=== PATIENT | female | born 1950 | race Caucasian/White ===

== ENCOUNTER 2018-02-16 12:34 | Outpatient (REF) | payer MEDICARE, OTHER, SELFPAY ==
[2018-02-16 22:23] LABS: Hemoglobin A1C 7.5 % (4.5-6.2)
[2018-02-20 10:02] LABS: Hepatitis C Ab w Rflx HCV PCR Negative (NEGAT)
== END 2018-02-16 12:54 ==
LOC: NCHCN 12:34
PROVIDERS: PCP Internal Medicine; Visit Provider Internal Medicine
DX: E11.9 Type 2 diabetes mellitus without complications (principal); Z11.59 Encounter for screening for other viral diseases
CPT/HCPCS: 86803; 83036

== ENCOUNTER 2018-12-12 12:20 | Outpatient (REF) | payer MEDICARE, OTHER, SELFPAY ==
[2018-12-12 21:44] LABS: Anion Gap 8.8 mmol/L (3-11); BUN 24 mg/dL (7-18); CO2 27.2 mmol/L (21.0-32.0); Calcium 9.3 mg/dL (8.5-10.1); Calculated LDL 42 mg/dL; Chloride 104 mmol/L (98-107); Cholesterol 127 mg/dL (50-200); Glucose 165 mg/dL (70-100); HDL Cholesterol 38 mg/dL (40-60); Sodium 140 mmol/L (136-145); Triglyceride 237 mg/dL (30-150)
== END 2018-12-12 12:40 ==
LOC: NCHCN 12:20
PROVIDERS: PCP Internal Medicine; Visit Provider Internal Medicine
DX: E11.9 Type 2 diabetes mellitus without complications (principal); E78.5 Hyperlipidemia, unspecified; I10 Essential (primary) hypertension
CPT/HCPCS: 80048; 80061

== ENCOUNTER 2020-01-01 19:17 | Outpatient (REF) | payer MEDICARE, OTHER, SELFPAY ==
[2020-01-01 20:46] LABS: Anion Gap 7.2 mmol/L (3-11); BUN 24 mg/dL (7-18); CO2 29.8 mmol/L (21.0-32.0); CREATININE 1.06 mg/dL (0.55-1.02); Calcium 9.1 mg/dL (8.5-10.1); Chloride 102 mmol/L (98-107); Estimated GFR 51.55 (mL/min/1.73m2); Glucose 274 mg/dL (74-106); Potassium 3.9 mmol/L (3.5-5.1); Sodium 139 mmol/L (136-145)
== END 2020-01-01 19:37 ==
LOC: NCHCN 19:17
PROVIDERS: PCP Internal Medicine; Visit Provider Internal Medicine
DX: E11.9 Type 2 diabetes mellitus without complications (principal); I10 Essential (primary) hypertension; F32.9 Major depressive disorder, single episode, unspecified; G47.00 Insomnia, unspecified
CPT/HCPCS: 80048

== ENCOUNTER 2020-02-15 09:05 | Outpatient (REF) | payer MEDICARE, OTHER, SELFPAY ==
[2020-02-15 11:55] LABS: C Diff PCR Negative (Negative)
== END 2020-02-15 09:25 ==
LOC: NCHCN 09:05
PROVIDERS: PCP Internal Medicine; Visit Provider Internal Medicine
DX: R19.7 Diarrhea, unspecified (principal)
CPT/HCPCS: 87493; 82272

== ENCOUNTER 2020-03-03 19:58 | Outpatient (REF) | payer MEDICARE, OTHER, SELFPAY ==
[2020-03-03 20:58] LABS: Abs Immature Grans 0.01 10^3/uL (0.0-0.06); Absolute Eosinophil Count 0.23 10^3/uL (0.0-0.7); Absolute Lymphocyte Count 1.38 10^3/uL (1.2-3.4); Absolute Monocyte Count 0.44 10^3/uL (0.1-0.8); Absolute Neutrophil Count 4.56 10^3/uL (1.2-6.7); Basophils % 1.5; Eosinophils % 3.4; HCT 41.2 % (36.0-46.0); HGB 14.2 g/dL (11.2-15.7); Immature Grans % 0.1; Lymphocytes % 20.5; MCH 30.4 pg (27.0-33.0); MCHC 34.5 % (32.0-36.0); MCV 88.2 fL (80-95); MPV 10.2 fL (8.0-11.0); Monocytes % 6.5; Nucleated RBC 0 %; Platelet Count 283 10^3/uL (130-400); RBC 4.67 10^6/uL (3.93-5.22); RDW-SD 41.8 fL; WBC 6.72 10^3/uL (4.4-10.8)
[2020-03-03 21:17] LABS: ALT 27 U/L (14-59); AST 18 U/L (15-37); Albumin 3.5 g/dL (3.4-5.0); Alkaline Phosphatase 76 U/L (46-116); Anion Gap 9.4 mmol/L (3-11); BUN 13 mg/dL (7-18); Bilirubin, Total 0.5 mg/dL (0.2-1.0); C-Reactive Protein 0.11 mg/dL (0.0-0.3); CO2 27.6 mmol/L (21.0-32.0); Calcium 8.7 mg/dL (8.5-10.1); Chloride 104 mmol/L (98-107); Estimated GFR 49.39 (mL/min/1.73m2); Glucose 189 mg/dL (74-106); Potassium 3.4 mmol/L (3.5-5.1); Sodium 141 mmol/L (136-145); Total Protein 6.9 g/dL (6.4-8.2)
== END 2020-03-03 20:18 ==
LOC: NCHCN 19:58
PROVIDERS: PCP Internal Medicine; Visit Provider Internal Medicine
DX: R19.7 Diarrhea, unspecified (principal); R10.9 Unspecified abdominal pain
CPT/HCPCS: 80053; 85025; 86140

== ENCOUNTER → 2020-03-14 11:00 | Outpatient (BNVA) | payer MEDICARE, OTHER, SELFPAY | PROVIDERS: PCP Internal Medicine; Referring Provider Internal Medicine; Visit Provider Surgery | DX: R19.4 Change in bowel habit (principal); R19.7 Diarrhea, unspecified; Z11.59 Encounter for screening for other viral diseases | CPT/HCPCS: 99213 ==

== ENCOUNTER 2020-03-20 15:34 | Outpatient (REF) | payer MEDICARE, OTHER, SELFPAY ==
[2020-03-20 21:26] LABS: Potassium 3.9 mmol/L (3.5-5.1)
== END 2020-03-20 15:54 ==
LOC: NCHCN 15:34
PROVIDERS: PCP Internal Medicine; Visit Provider Internal Medicine
DX: E87.6 Hypokalemia (principal)
CPT/HCPCS: 84132

== ENCOUNTER 2020-04-03 11:11 | Outpatient (CLI) | payer MEDICARE, OTHER, SELFPAY ==
[2020-04-05 15:56] LABS: COVID-19 RT-PCR UVMMC Result Negative (Negative)
== END 2020-04-03 11:31 ==
PROVIDERS: PCP Internal Medicine; Visit Provider Surgery
DX: Z11.59 Encounter for screening for other viral diseases (principal); Z01.818 Encounter for other preprocedural examination
CPT/HCPCS: U0003

== ENCOUNTER 2020-04-07 08:09 | Day surgery (SDC) | payer MEDICARE, OTHER, SELFPAY ==
--- NOTE | 2020-04-07 06:59 | COLE_ITS ---
Date of service: 04/07/20 Time of Service: : Colonoscopy Report Date of procedure: 04/07/20 Pre-op diagnosis general: screening and diarrhea Post-op diagnosis procedure note: same (and internal hemorrhoids) Procedure: Colonoscopy Surgeon: Barbara Kaur Anesthesia proc note operative: other (General/ASA 2/Jenniffer Shore CRNA and Eddy Espinoza CRNA) Estimated blood loss (mL): 0 Pathology: none sent Complications: None Disposition: same day Indications: Mrs. Oden is a pleasant 69-year-old female who started with some profuse diarrhea about 5 to 6 weeks ago. This lasted for about 3 weeks. In the last week or so her stools have started to become more formed and she is having less frequency of stool. Her cultures were all negative. I suspect that she probably had a gastroenteritis due to a virus and she has an irritated colon from that. As her symptoms are getting better I doubt that there is colon cancer or anything else to worry about. Because she has never had a colonoscopy I did recommend that we go ahead with a screening colonoscopy. We discussed the colonoscopy in detail as well as's Covid testing prior to the procedure. Risks, benefits and complications have been reviewed. Complications include but are not limited to bleeding, pain, perforation, missed small lesion/polyp, sore throat, aspiration and adverse reaction to the medications. Questions were entertained and answered to their satisfaction and they wished to proceed. No guarantees were given or implied. COVID-19 testing explained to the patient. Reason for test reviewed. Quarantine per state requirements reviewed with zoraida smiley. Patient understands and agrees to testing. Proceed with colonoscopy under sedation and Covid testing. Prep: Miralax/Dulcolax Procedure Start Time: : Procedure End Time: :35 Retraction Time: 20 minutes Findings: Grade 1 internal hemorrhoids Procedure Description: After informed consent was obtained the patient was taken to the procedure room and placed in a left decubitous position. Monitors were applied and a time out was done. The patients name, date of , procedure, allergies to medications and metal in their body was reviewed. The patient was then sedated. Once sedated and comfortable a rectal exam was done. External exam was normal. Internal exam revealed a normal sphincter tone and no palpable masses. The scope was then introduced and retro-flexed. Grade 1 internal hemorrhoids were identified. The scope was then advanced to the cecum without difficulty. The ileocecal valve and appendiceal orifice were identified. The prep was good. The scope was then slowly retracted over 20 minutes back into the rectum. There were no polyps and no diverticula. The scope was removed and the patient was woken up and taken back to Same day surgery in stable condition. The patient tolerated the procedure well and there were no immediate complications. Follow up: The patient should follow up in 10 years unless they develop changes in bowel habits or other new gastrointestinal complaints.
--- NOTE | 2020-04-07 07:00 | W.PM.DSUDISC ---
Discharge Plan Disposition Patient Disposition: HOME Condition: Good Discharge Details Reason For Visit: colonoscopy Attending Provider: Barbara Kaur Primary Care Provider: Alek Ghosh Home Meds and New Rx's Prescriptions: Continued meloxicam 7.5 mg tablet 15 mg PO DAILY RF: 0 losartan 50 MG tablet 50 mg PO DAILY RF: 0 atorvastatin [Lipitor] 40 MG tablet 40 mg PO DAILY RF: 0 metformin 1,000 MG tablet 1,000 mg PO BID RF: 0 glimepiride 4 MG tablet 4 mg PO DAILY RF: 0 hydrochlorothiazide 25 MG tablet 25 mg PO DAILY RF: 0 fluoxetine 20 MG capsule 20 mg PO DAILY RF: 0 multivitamin 1 EACH capsule 1 cap PO DAILY RF: 0 Discontinued bisacodyl [Dulcolax (bisacodyl)] 5 mg tablet,delayed release (DR/EC) 5 mg PO ONCE Qty: 4 RF: 0 polyethylene glycol 3350 17 gram powder in packet 255 g PO DAILY Qty: 15 RF: 0 Discharge Instructions Instructions: Hemorrhoids (DC) Additional Instructions: Findings: Normal colon Follow up: 10 years For the diarrhea: Try taking metamucil daily to bulk up your stools. Eliminate dairy from your diet for at least 2 weeks to see if this makes a difference. Please call if you develop: fevers >101.5 Nausea or Vomiting Abdominal pain that is not transient DAY SURGERY UNIT POST ENDOSCOPY INSTRUCTIONS 1. Because there will be medication in your system for the next 24 hours, you may feel a little sleepy. Your coordination will be affected. Therefore: a. Do not drive or operate dangerous equipment for 24 hours. b. Do not drink alcohol beverages for 24 hours (not even beer). c. Plan to go home and rest for the day. 2. Generally there are no restrictions on your activity after a day or so has gone by, but you may feel a bit fatigued for a few days. 3 After you arrive home you may have a light meal and return to a normal diet as you can tolerate it without feeling sick to your stomach. 4. After surgery, you may feel pain or discomfort. This should be only transient, but if it persists please contact your doctor. 5. If there are any questions regarding the findings of your procedure, please feel free to contact your doctor. 6. If you are unable to contact your doctor with a problem, contact the hospital at [phone]. 7. Continue all your regular medications unless directed otherwise. I understand the above instructions and have no questions. Signature of Patient or Responsible Adult Escort Date/Time Name of Responsible Adult Escort Signature of Nurse Date/Time Activity:: Activity as Tolerated Diet:: dairy free Discharge Orders Discharge Orders: Discharge Order (Routine); Ordered 04/07/20 Ordered By: Barbara Kaur
[2020-04-07 08:25] VITALS: BP 139/77; PULSE 89; RESP 17; TEMP 36.4; O2SAT 93
[2020-04-07] MEDS: Lactated Ringers 1,000 ML 80 ML IV (08:48)
[2020-04-07 10:16] VITALS: BP 116/60; PULSE 67; RESP 16; TEMP 36.7; O2SAT 95
== END 2020-04-07 10:57 | disposition home or self-care (01) ==
LOC: SUR 08:10
PROVIDERS: PCP Internal Medicine; Visit Provider Surgery
PROC: 0DJD8ZZ Inspection of Lower Intestinal Tract, Via Natural or Artificial Opening Endoscopic (ICD-10-PCS; CPT 45378; principal; 2020-04-07 09:30)
DX: Z12.11 Encounter for screening for malignant neoplasm of colon (principal); R19.7 Diarrhea, unspecified; K64.0 First degree hemorrhoids
CPT/HCPCS: G0121; J2001

== ENCOUNTER 2020-11-11 12:11 | Outpatient (REF) | payer MEDICARE, OTHER, SELFPAY ==
[2020-11-11 20:38] LABS: Abs Immature Grans 0.02 10^3/uL (0.0-0.06); Absolute Basophil Count 0.05 10^3/uL (0.0-0.2); Absolute Eosinophil Count 0.02 10^3/uL (0.0-0.7); Absolute Lymphocyte Count 0.77 10^3/uL (1.2-3.4); Absolute Monocyte Count 0.85 10^3/uL (0.1-0.8); Basophils % 0.5; Eosinophils % 0.2; HCT 41.5 % (36.0-46.0); HGB 13.7 g/dL (11.2-15.7); Immature Grans % 0.2; Lymphocytes % 7.7; MCH 30.3 pg (27.0-33.0); MCV 91.8 fL (80-95); MPV 10.3 fL (8.0-11.0); Monocytes % 8.5; Neutrophils % 82.9; Nucleated RBC 0 %; Platelet Count 242 10^3/uL (130-400); RBC 4.52 10^6/uL (3.93-5.22); RDW 12.7 % (11.7-14.6); RDW-SD 42.6 fL; WBC 10.01 10^3/uL (4.4-10.8)
[2020-11-11 20:53] LABS: ALT 15 U/L (14-59); AST 17 U/L (15-37); Albumin 3.3 g/dL (3.4-5.0); Alkaline Phosphatase 74 U/L (46-116); Anion Gap 10.3 mmol/L (3-11); BUN 20 mg/dL (7-18); CO2 28.7 mmol/L (21.0-32.0); CREATININE 1.1 mg/dL (0.55-1.02); Calcium 8.7 mg/dL (8.5-10.1); Chloride 100 mmol/L (98-107); Estimated GFR 49.25 (mL/min/1.73m2); Glucose 154 mg/dL (74-106); Potassium 3.9 mmol/L (3.5-5.1); Sodium 139 mmol/L (136-145); Total Protein 7.1 g/dL (6.4-8.2)
[2020-11-11 20:54] LABS: Bilirubin Small (Negative); Blood Small (Negative); Clarity Sl Cloudy (Clear); Glucose Negative (Negative); Ketones 40 mg/dL (Negative); Leukocyte Esterase Moderate (Negative); Nitrite Negative (Negative); Specific Gravity 1.015 (1.005-1.025); pH 6.5 (5-8)
[2020-11-11 21:08] LABS: Bacteria Many HPF (Negative); Epithelial Cells Many HPF (Negative); WBC >50 HPF (0-5)
[2020-11-11 21:09] LABS: C & S Indicated? No/Sq. Contamination; Other Cells Moderate Renal (Negative)
== END 2020-11-11 12:12 | disposition home or self-care (01) ==
LOC: NCHCN 12:11
PROVIDERS: PCP Internal Medicine; Visit Provider Family Medicine
DX: N10 Acute pyelonephritis (principal)
CPT/HCPCS: 80053; 81003; 81015; 85025

== ENCOUNTER 2021-10-20 17:20 | Outpatient (REF) | payer MEDICARE, OTHER, SELFPAY ==
[2021-10-20 15:50] LABS: Anion Gap 10.1 mmol/L (3-11); BUN 29 mg/dL (7-18); CO2 27.9 mmol/L (21.0-32.0); Calcium 8.9 mg/dL (8.5-10.1); Chloride 103 mmol/L (98-107); Estimated GFR 54.81 (mL/min/1.73m2); Glucose 135 mg/dL (74-106); Potassium 4.2 mmol/L (3.5-5.1); Sodium 141 mmol/L (136-145)
== END 2021-10-20 17:21 | disposition home or self-care (01) ==
LOC: NCHCN 17:20
PROVIDERS: PCP Internal Medicine; Visit Provider Internal Medicine
DX: E11.9 Type 2 diabetes mellitus without complications (principal); I10 Essential (primary) hypertension; F32.9 Major depressive disorder, single episode, unspecified; R35.0 Frequency of micturition
CPT/HCPCS: 80048

== ENCOUNTER → 2022-02-23 02:03 | Outpatient (CLI) | payer MEDICARE, OTHER, SELFPAY ==
--- NOTE | 2022-02-23 14:00 | DI.RAD_ITS ---
Exam(s) XR HIP RT COMPLETE AP PELVIS EXAM: XR HIP RT COMPLETE AP PELVIS CLINICAL HISTORY: RT HIP OSTEOARTHRITIS, M16.11. TECHNIQUE: 2D digital imaging was performed of the right hip. Three images were obtained. AP pelvis and lateral right hip views were obtained. COMPARISON: No exams were available for comparison FINDINGS: BONES: No acute fracture is present. No bony destructive lesion is seen. There are mild hypertrophic changes seen at the greater trochanter. JOINTS: No dislocation present. Moderate degenerative changes in the lumbar spine. SOFT TISSUE: Normal. IMPRESSION: 1. Mild hypertrophic/degenerative changes seen at the greater trochanter. 2. Degenerative changes in the lower lumbar spine. DATA REPOSITORY: RADIATION DOSE DELIVERED:
== END ==
PROVIDERS: PCP Internal Medicine; Visit Provider Internal Medicine
DX: M47.816 Spondylosis without myelopathy or radiculopathy, lumbar region (principal); M16.11 Unilateral primary osteoarthritis, right hip
CPT/HCPCS: 73502

== ENCOUNTER → 2022-05-06 09:40 | Outpatient (BNVA) | payer MEDICARE, OTHER, SELFPAY | PROVIDERS: PCP Internal Medicine; Referring Provider Internal Medicine; Visit Provider Student in an Organized Health Care Education/Training Program | DX: M70.61 Trochanteric bursitis, right hip (principal); M76.891 Other specified enthesopathies of right lower limb, excluding foot | CPT/HCPCS: 20610; 99213; J1040 ==

== ENCOUNTER 2022-06-14 01:25 | Outpatient (CLI) | payer MEDICARE, OTHER, SELFPAY ==
--- NOTE | 2022-06-14 07:00 | DI.MRI_ITS ---
Exam(s) MR LOWER JOINT RT WO EXAM: MR LOWER JOINT RT WO CLINICAL HISTORY: PAIN,trochanteric bursitis rt hip, tendinitis rt hip abductor,m76.891, TECHNIQUE: Multiplanar multisequence MRI of right hip was performed COMPARISON: CR XR HIP RT COMPLETE AP PELVIS from 02/23/2022 FINDINGS: Bones: There is no evidence of a fracture or avascular necrosis. No significant joint effusion or l abral injury is present. There is narrowing of the hip joint space. There is hyperintense signal se en in the right femoral head, neck and to a lesser degree proximal metaphysis. There does appear to be linear hypointense signal paralleling the superior articular surface of the femoral head. There i s also mild marrow edema seen in the adjacent superior medial right acetabulum. There is otherwise n ormal marrow signal. The SI joints and symphysis pubis are well maintained. Musculotendinous structures: Musculotendinous structures demonstrate no abnormality. Note is made of diverticular disease in the sigmoid colon. Soft tissues: There is mild edema seen in the soft tissues inferior to the femoral head. No focal fl uid collection is seen. IMPRESSION: 1. Marrow edema seen in the proximal right femur as described above. Diagnostic considerations inclu de transient osteoporosis of the hip or AVN. Stress fracture, infection or inflammatory osteoarthrit is considered less likely. 2. No evidence of a tendon tear. DATA REPOSITORY:
== END 2022-06-14 01:45 ==
LOC: DI 01:30
PROVIDERS: PCP Internal Medicine; Visit Provider Student in an Organized Health Care Education/Training Program
DX: M25.551 Pain in right hip (principal); M70.61 Trochanteric bursitis, right hip; M76.891 Other specified enthesopathies of right lower limb, excluding foot; M25.851 Other specified joint disorders, right hip
CPT/HCPCS: 73721

== ENCOUNTER 2022-06-17 11:16 | Outpatient (CLI) | payer MEDICARE, OTHER, SELFPAY ==
--- NOTE | 2022-06-17 10:45 | DI.RAD_ITS ---
Exam(s) XR PELVIS AP EXAM: XR PELVIS AP CLINICAL HISTORY: right hip pain. TECHNIQUE: 2D digital imaging was performed. One view AP COMPARISON: CR XR HIP RT COMPLETE AP PELVIS from 02/23/2022 FINDINGS: BONES: No acute fracture is present. No bony destructive lesion is seen. JOINTS: No dislocation present. Moderate narrowing right hip joint space. Mild periarticular spurrin g. Mild spurring at the greater trochanters, right greater the left. Left hip joint space is mainta ined. SOFT TISSUE: Normal. IMPRESSION: Moderate degenerative changes of the right hip. DATA REPOSITORY: RADIATION DOSE DELIVERED:
== END 2022-06-17 11:17 | disposition home or self-care (01) ==
LOC: DIORS 11:17
PROVIDERS: PCP Internal Medicine; Referring Provider Internal Medicine; Visit Provider Student in an Organized Health Care Education/Training Program
DX: M16.11 Unilateral primary osteoarthritis, right hip; M70.61 Trochanteric bursitis, right hip; M76.891 Other specified enthesopathies of right lower limb, excluding foot
CPT/HCPCS: 99213; 72170

== ENCOUNTER 2022-07-08 03:12 | Outpatient (CLI) | payer MEDICARE, OTHER, SELFPAY ==
[2022-07-08 12:09] LABS: HCT 40.6 % (36.0-46.0); HGB 13.9 g/dL (11.2-15.7); MCH 31.5 pg (27.0-33.0); MCHC 34.2 % (32.0-36.0); MCV 92 fL (80-95); MPV 8.7 fL (8.0-11.0); Platelet Count 279 10^3/uL (130-400); RBC 4.41 10^6/uL (3.93-5.22); RDW-SD 41.1 fL; WBC 7.69 10^3/uL (4.4-10.8)
[2022-07-08 13:02] LABS: Anion Gap 5.5 mmol/L (3-11); BUN 25 mg/dL (7-18); CO2 33.5 mmol/L (21.0-32.0); CREATININE 1.1 mg/dL (0.55-1.02); Calcium 9.4 mg/dL (8.5-10.1); Chloride 104 mmol/L (98-107); Estimated GFR 53.72 (mL/min/1.73m2); Glucose 130 mg/dL (74-106); Potassium 4.2 mmol/L (3.5-5.1); Sodium 143 mmol/L (136-145)
== END 2022-07-08 03:13 | disposition home or self-care (01) ==
LOC: LBO 03:16
PROVIDERS: PCP Internal Medicine; Visit Provider Student in an Organized Health Care Education/Training Program
DX: M16.11 Unilateral primary osteoarthritis, right hip; Z01.818 Encounter for other preprocedural examination; Z01.812 Encounter for preprocedural laboratory examination
CPT/HCPCS: 36415; 80048; 85027

== ENCOUNTER 2022-07-14 06:00 | Day surgery (SDC) | payer MEDICARE, OTHER, SELFPAY ==
[2022-07-14] VITALS (12 sets, daily range): BP systolic 118–143; BP diastolic 55–88; PULSE 60–88; RESP 12–18; TEMP 36.2–36.6; O2SAT 94–97; BMI 38.4
[2022-07-14] MEDS: Acetaminophen 500 MG TAB 1000 MG PO (06:36)
[2022-07-14] MEDS: Celecoxib 200 MG CAP 400 MG PO (06:37)
--- NOTE | 2022-07-14 06:52 | W.ANESPRE ---
General Info Date of Service Date Performed: 07/14/22 Height: 5 ft 6 in Weight: 107.9 kg Body Mass Index (BMI): 38.4 Surgical Procedure: Operation Date: 07/14/22 07:50 Proposed Procedure Side Surgeon p Hip Total Hip Anterior, ACTIS (CR 125 deg. [place]) Right Bryant Goldberg MD Meds Allergies and Home Medications Allergies Allergy/AdvReac Type Severity Reaction Status Date / Time adhesive tape AdvReac Intermediate Verified 07/14/22 06:25 lisinopril AdvReac Intermediate cough Verified 07/14/22 06:23 Home Medication Medication Instructions Recorded atorvastatin 40 mg tablet (Lipitor) 40 mg PO DAILY 07/27/13 fluoxetine 20 mg capsule 20 mg PO DAILY 07/27/13 hydrochlorothiazide 25 mg tablet 25 mg PO DAILY 07/27/13 metformin 1,000 mg tablet 1,000 mg PO BID 07/27/13 multivitamin 1 cap PO DAILY 07/30/13 losartan 50 mg tablet 100 mg PO DAILY 02/23/22 acetaminophen 500 mg capsule 1,000 mg PO BID PRN 05/06/22 Current Visit Medications: Current Medications Generic Name Dose Route Start Last Admin Trade Name Freq PRN Reason Stop Dose Admin Acetaminophen 1,000 mg 07/14/22 06:00 07/14/22 06:36 Acetaminophen 500 Mg Tab PO 07/14/22 18:00 1,000 mg PREOP JOCELYNN Administration Celecoxib 400 mg 07/14/22 06:00 07/14/22 06:37 Celecoxib 200 Mg Cap PO 07/14/22 18:00 400 mg PREOP JOCELYNN Administration Tranexamic Acid 1,000 mg/ 60 mls @ 360 mls/hr 07/14/22 06:00 Sodium Chloride IV 07/14/22 18:00 PREOP JOCELYNN Ringer's Solution 1,000 mls @ 80 mls/hr 07/14/22 06:00 IV 08/12/22 23:59 INFUSION JOCELYNN Cefazolin Sodium/Dextrose 2 gm in 50 mls @ 100 mls/hr 07/14/22 06:00 Ancef Duplex IVPB 07/14/22 16:00 PREOP JOCELYNN IV Miscellaneous Supplies 1 each 07/14/22 06:00 Iv Access IV 08/12/22 23:59 DIRECTED JOCELYNN Sodium Chloride 0 ml 07/14/22 06:00 Normal Saline Flush 10 Ml Syr IV 08/12/22 23:59 PRN PRN Sodium Chloride 0 ml 07/14/22 06:00 Normal Saline 10 Ml Vial IJ 08/12/22 23:59 DIRECTED PRN Sterile Water 0 ml 07/14/22 06:00 Water,Injection,Sterile 10 Ml Vial IJ 08/12/22 23:59 DIRECTED PRN PFSH Active Problems Active Problems: Problem Status Onset Code Diarrhea R19.7 Abdominal pain R10.9 Trochanteric bursitis, right hip M70.61 Tendinitis involving right hip abductors M76.891 Degenerative joint disease of right hip M16.11 Medical History Medical History (Updated 07/14/22 @ 06:30 by Ivy Diego) Depression Diabetes DJD (degenerative joint disease) a. Uses Tylenol 500 mg t.i.d. Dyslipidemia Hx of diabetes mellitus Hx of diarrhea Hypertension A. Well controlled with a combination of Hydrochlorothiazide 25 mg once daily and Losartan 50 mg once daily. Insomnia Morbid obesity with BMI of 40.0-44.9, adult PCOS (polycystic ovarian syndrome) Surgical History Surgical History (Updated 07/14/22 @ 06:28 by Ivy Diego) History of x2 Hx of colonoscopy Hx of tonsillectomy Normal colonoscopy (~04/2020) S/P cholecystectomy Status post total knee replacement, left Left TKA Left TKA revision Status post total knee replacement, right Tobacco Smoking/Tobacco Use Status: Former Tobacco Use Alcohol Alcohol Intake: never Substance Use Substance use: Never Substance use type: does not use Vital Signs and Lab Results Vital Signs Most Recent Vital Signs in EMR: Most Recent Vital Signs Temp Pulse Resp BP Pulse Ox 36.6 C 87 18 118/88 94 07/14/22 06:30 07/14/22 06:30 07/14/22 06:30 07/14/22 06:30 07/14/22 06:30 Point of Care Results Point of Care Results: Finger Stick Blood Glucose 148 07/14/22 06:40 Lab Results Blood Type / Crossmatch: No Data to Display Complete Blood Count: White Blood Count 7.69 10^3/uL (4.4-10.8) 07/08/22 12:00 Red Blood Count 4.41 10^6/uL (3.93-5.22) 07/08/22 12:00 Hemoglobin 13.9 g/dL (11.2-15.7) 07/08/22 12:00 Hematocrit 40.6 % (36.0-46.0) 07/08/22 12:00 Platelet Count 279 10^3/uL (130-400) 07/08/22 12:00 Complete Metabolic Panel: Sodium 143 mmol/L (136-145) 07/08/22 12:00 Potassium 4.2 mmol/L (3.5-5.1) 07/08/22 12:00 Chloride 104 mmol/L (98-107) 07/08/22 12:00 Carbon Dioxide 33.5 mmol/L (21.0-32.0) H 07/08/22 12:00 BUN 25 mg/dL (7-18) H 07/08/22 12:00 Creatinine 1.1 mg/dL (0.55-1.02) H 07/08/22 12:00 Est GFR (CKD-EPI 2020) 53.72 (mL/min/1.73m2) 07/08/22 12:00 Calcium 9.4 mg/dL (8.5-10.1) 07/08/22 12:00 Glucose 130 mg/dL (74-106) H 07/08/22 12:00 Liver Function Panel: No Data to Display Coagulation Panel: No Data to Display Cardiac Panel: No Data to Display Arterial Blood Gas: No Data to Display Venous Blood Gas: No Data to Display Pancreas Panel: No Data to Display Thyroid Panel: No Data to Display Infectious Disease: No Data to Display Blood Cultures: No Data to Display Toxicology Panel: No Data to Display Anesthesia Assessment and Plan Anesthesia History Personal History: No History of Anesthesia Complications Family History: No Family History of Anesthesia Complications Exercise Tolerance Exercise Tolerance: Metabolic Equivalents>4 Pertinent Negatives Pertinent Negatives: No Symptoms of GERD, No Major Cardiovascular Symptoms or Complaints and No Major Pulmonary Symptoms or Complaints Cardiac & Pulmonary Exam Cardiac Exam: Normal S1/S2 Heart Sounds Pulmonary Exam: Clear Bilateral Breath Sounds Implantable Cardiac Device Does patient have a Pacemaker or an ICD?: No Airway Exam Known Difficult Airway: No Mallampati Class: 1 Mouth Opening: Normal (> 3cm) Thyromental Distance: Greater than 3 cm Neck Range of Motion: Full ROM Neck Circumference: Normal Teeth Condition: Normal Dentition ASA Classification ASA Score: ASA 2 Emergency Case?: No NPO Status NPO Status: NPO Clears >2 hours, Solids >8 hours Anesthesia Plan Resuscitation Status: Full Code Anesthesia Technique: Spinal Anesthesia Airway Planned: Natural Airway Monitors Used: Standard Monitors
[2022-07-14] MEDS: Lactated Ringers 1,000 ML 80 ML IV (07:02)
--- NOTE | 2022-07-14 07:18 | PDOC.DSDIS_ITS ---
Date of service: 07/14/22 Time of Service: 07:18 Discharge Plan Disposition Patient Disposition: Home Condition: Good Discharge Details Reason For Visit: R THR Attending Provider: Bryant Goldberg Primary Care Provider: Alek Ghosh Home Meds and New Rx's Prescriptions: New celecoxib 200 mg capsule 200 mg PO BID Qty: 60 0RF aspirin 81 mg tablet,delayed release (DR/EC) 81 mg PO BID Qty: 60 0RF acetaminophen 500 mg tablet 1,000 mg PO TID Qty: 90 3RF pantoprazole 40 mg tablet,delayed release (DR/EC) 40 mg PO DAILY Qty: 30 0RF dexamethasone 4 mg tablet 4 mg PO DAILY Qty: 2 0RF oxycodone 5 mg tablet 5 mg PO Q4H MDD 6 tabs PRN (Reason: pain) Qty: 20 0RF Continued losartan 50 mg tablet 100 mg PO DAILY atorvastatin [Lipitor] 40 MG tablet 40 mg PO DAILY metformin 1,000 MG tablet 1,000 mg PO BID hydrochlorothiazide 25 MG tablet 25 mg PO DAILY fluoxetine 20 MG capsule 20 mg PO DAILY multivitamin 1 EACH capsule 1 cap PO DAILY Discontinued acetaminophen 500 mg capsule 1,000 mg PO BID PRN Discharge Instructions Additional Instructions: Total Hip Discharge Instructions Activity: The most important activity is to walk. You should try to take short walks a few times a day. You have no restrictions on movement or positioning, but do not try to force what you do. You will find some stiffness and weakness with hip flexion (lifting your knee). Do not try to strengthen this too early, continue to practice walking and stairs and this will come. - Outpatient physical therapy can be helpful to help return you to a normal gait and improve your flexibility and strength. This can start around 2 weeks. For some patients, it?s not necessary. Usually this is determined at the time of discharge or at the first post-operative visit. - You should wear the ROSEMARIE hose on both legs for 2 weeks. Dressing: Keep the surgical dressing in place for at least one week. After the first week it may be removed and replace with light gauze and tape or nothing. It may get wet after 3 days but avoid soaking the dressing. If it gets wet, just lightly pat dry. It is important to always keep some gauze between skin folds, especially when you are sitting. Spend some time with the wound exposed when you are lying flat as the incision does wrinkle onto itself. Medications: - You should take Tylenol and an anti-inflammatory Celebrex as your primary pain control medications. If the Celebrex is too expensive or not covered, please call the office for another alternative (Advil/Ibuprofen or Naproxen/Aleve). - You have been prescribed a stronger pain medication Oxycodone for breakthrough pain, take as needed as prescribed. - You have also been prescribed a stomach acid reduction agent Pantoprozole to help reduce stomach acid and reflux. - You have also been prescribed Decadron to help with post-operative nausea and pain. You will take this for two days starting tomorrow. - You will be taking Aspirin 81mg twice a day for DVT prevention unless instructed otherwise. - If you have constipation you should take Colace or Miralax (both [id number]). It takes most people 3-4 days to have a bowel movement. Follow-up: 2 weeks If you have any acute concerns or questions, please do not hesitate to contact the office at [phone]. You may contact Dr. Goldberg with any questions after hours through the hospital at [phone] or on his cell phone at [phone]. Stand Alone Forms: Anesthesia Discharge Inst., [facility] ([facility]) Referrals: Bryant Goldberg MD [ [facility] STAFF PHYSICIAN] - Equipment/Supplies: Walker Activity:: Activity as Tolerated Shower/Bathe:: 72 hours Diet:: As Tolerated Discharge Orders Discharge Orders: Discharge Order (Routine); Ordered 07/14/22 Ordered By: Zak Schaefer DS: Diagnosis Discharge Diagnosis (1) Degenerative joint disease of right hip: Status: Chronic
[2022-07-14] MEDS: ceFAZolin 2 GM/50 ML BAG IVPB (07:29)
--- NOTE | 2022-07-14 08:45 | DI.RAD_ITS ---
Exam(s) XR HIP RT IN OR EXAM: XR HIP RT IN OR CLINICAL HISTORY: DJD RIGHT HIP. TECHNIQUE: 2D digital imaging was performed. COMPARISON: No exams were available for comparison FINDINGS: Fluoroscopy provided for right hip arthroplasty. See procedure report for details. Radiation exposure index/cumulative dose:Eddar=5.6959 mGy IMPRESSION: DATA REPOSITORY: RADIATION DOSE DELIVERED:
--- NOTE | 2022-07-14 09:08 | W.PM.OP ---
Date of service: 07/14/22 Time of Service: 09:08 Operative Note Operative Note DATE OF PROCEDURE: 07/14/22 PRE-OP DIAGNOSIS: Right Hip Osteoarthritis POST-OP DIAGNOSIS: same PROCEDURE: Right Anterior Total Hip Arthroplasty with Intraoperative Navigation SURGEON: Bryant Goldberg FISH CUTTING MACHINE OPERATOR: Zak Schaefer ANESTHESIA TYPE: Spinal Refer to Anesthesia Record ESTIMATED BLOOD LOSS: 200 PATHOLOGY: none sent TOURNIQUET TIME: 0 COMPLICATIONS: None Patient was transported to: PACU Patient's condition: stable Implants: 1. Depuy Paisley Acetabular Component, 50mm 2. Depuy Acetabular Liner, [id number] 3. Depuy Actis Standard Collared Femoral Stem, Size 4 4. Depuy Altrx Ceramic Femoral Head, Size 32+5mm Indications: I have seen Norma in clinic for symptoms of hip arthritis, confirmed with radiographic findings, which was quite progressive and debilitating. Norma has exhausted nonoperative methods and was having significant limitations in daily function and desired better function and less pain. I discussed the technical details of a hip replacement. I explained the risks of the procedure to include, but not limited to, bleeding, infection, pain, stiffness, fracture, damage to nerves and vessels, damage to muscles and tendons, loosening, instability, leg length inequality, need for repeat procedure, blood clot and cardiopulmonary demise. Despite these risks, she elected to proceed. Findings: There was significant signs of arthritis throughout the hip, most notably of the femoral head. Procedure Description: Norma was greeted in the preoperative holding area where the correct side was identified and marked. The consent was reviewed with the patient and signed. The history and physical was updated. All questions were answered. She was taken back to the operating room. A spinal anesthestic was then administered. The feet were wrapped with cast padding and Coban and then placed into the boot liners and then into the boots. Care was taken to protect the skin and make sure the heels were fully down and the boots were stable. The patient was then positioned onto the HANA table. Both legs were held in a neutral position. SCDs were applied. The patient was then slid down onto a peroneal post. Prophylactic antibiotics in the form of Cefazolin were administered. 1g of Tranxemic Acid was given intravenously within 30 minutes of incision. The right leg was then prepped with Chloraprep and draped in a standard fashion. A second prep with Chloraprep was performed prior to placement of a shower-curtain type drape with Iodine impregnated skin protection. A timeout to confirm correct identity, side and site, procedure, allergies, anesthesia, and medical concerns was performed. An obliquely oriented incision was made starting lateral to the ASIS and running distal over the Tensor Fascia [place] (TFL) muscle belly toward the fibular head, approximately 10cm. The skin and soft tissue was dissected sharply, through Juan?s fascia, and to the fascia of the TFL. With the fascia and superior border of the IT band identified, the fascia was incised with a new knife just above any perforators from the IT band. The TFL muscle belly was bluntly dissected away from the fascia and moved laterally. The fat between TFL and rectus was identified to ensure the dissection was not within the TFL. Blunt dissection created space between abductors and the capsule and retractor was placed over the lateral femoral neck. The fibers of the rectus femoris tendon were identified and these were freed from the anterior capsule. A second cobra retractor was placed around the medial femoral neck. The TFL was further retracted laterally to show the deep fascia. Careful dissection through this layer identified three main crossing vessels of the lateral femoral circumflex. These were cauterized in multiple locations and then cut without any noticeable bleeding. The TFL was further released bluntly from the deep fascia to expose anterior hip capsule and fat The Rell orthopaedic retractor was then placed beneath the TFL and against sartorius and medial soft tissues to protect and retract the soft tissues. A T-capsulotomy was then performed starting at the superior lateral acetabulum and moving distally to the intertrochanteric ridge. These capsular flaps were tagged with a No. 1 Ethibond and elevated from within. The capsular flaps were released to the shoulder of the lateral neck and to the lesser trochanter to give excellent visualization of the proximal femur. A neck osteotomy was performed using an oscillating saw based on preoperative templates. This cut started in the shoulder and of the lateral neck and exited medially. The saw was at all times directed medially to avoid injury to the greater trochanter. Gross traction was applied to the leg and the osteotomy opened. The femoral head was removed with a corkscrew, making sure to protect the TFL on its exit. Traction was released after head removal. This was measured on the back table to determine the starting reamer size. Portions of the rectus obscuring visualization were minimally elevated off the superior acetabulum. An anterior retractor was placed over the anterior wall between capsule and labrum and attached to the Gripper retraction system. The femur was rotated to 90 degrees and medial capsule was fully released until the lesser trochanter was palpable and visible; the femur was returned to 30 degrees. A posterior retractor was placed similarly between capsule and labrum. This provided excellent visualization. The contents of the cotyloid fossa were removed with electrocautery and the labrum was removed with a knife. Acetabular reaming began with a 46mm reamer. This first reaming was directed anterior to posterior and medial to get down to the true floor. This was inspected and reamed until the true floor was reached. The anterior retractor was then released and entry and exit was provided by traction on the capsular flaps. I then reamed sequentially up to a 50mm reamer where good fit was obtained. The larger reamers were oriented based on anatomical reference of the anterior and lateral nazario to ensure proper abduction and anteversion. Positioning and size was confirmed with the fluoroscopy. A 50mm Depuy Paisley acetabular component was selected. The acetabulum was reamed around the periphery with the selected acetabular size to prevent a rim fit. The deep tissues were irrigated. The acetabular component was then impacted in a position of about 40-45 degrees of abduction and 15-20 degrees of anteversion, using the patient?s anatomy as the ultimate landmark. Fluoroscopy was used to confirm this. There was excellent vanstone machine operator of the acetabular component and the inserting handle was removed. The acetabular liner, Depuy [id number] polyethylene liner, was inserted and lined up with the tines of the acetabular component. There was no soft tissue interposition. The liner was then impacted into position and confirmed to be well-seated. A portion of the sarah-articular cocktail was then injected around the acetabulum into the capsule and periosteum. This cocktail consisted of 123mg of Ropivacaine, 0.25mg of Epinephrine, 0.04mg of Clonidine, and 15mg of Ketorolac, diluted to 50cc. The leg was rotated to 120 degrees. Any remaining medial capsule was released until the lesser trochanter was easily palpable. A retractor was placed medially. The lateral capsule was further released into the shoulder to allow access to the greater trochanter. A Fields retractor was placed over the greater trochanter which allowed the trochanter to flip in front of the capsule for excellent exposure. The leg was brought down into maximal extension and 20 degrees of adduction while ensuring there was no impingement on the acetabulum. Any remnant capsule within the trochanter was released. Piriformis and obturator externis were identified and protected. There was excellent access to the proximal femur. The lateral neck remnant was removed with a rongeur. A blunt canal probe was used to identify the canal and trajectory for later broaching. A box osteotome initiated the broach course. A small curved rasp and a curved curette were used to work laterally. Broaching then began with a starter Actis broach. This was inserted manually around the trochanter and into the canal before mallet blows. The broach was seated to the neck cut level based on the neck cut and the preoperative template. Sequential broaching was continued with the WelVUse pneumatic broaching device until a tight fit was obtained with good rotational control of the femur. A trial standard neck was inserted along with a +5 trial head. The leg was brought out of extension and adduction and then reduced with traction and internal rotation. The leg was stable anteriorly in a position of 30 degrees of extension and 90 degrees of external rotation. Fluoroscopy was used to ensure there was no fracture and the stem was seated well. Leg lengths were checked with an AP pelvis and pelvic reference points. SpeechTrans navigation system was used to confirm appropriate positioning and leg length and offset. This showed appropriate offset but too much leg length, thus advancing the stem 5mm. Once content with the desired offset and leg lengths, the leg was brought back into extension, external rotation and adduction. The periosteum and surrounding tissue was injected with remaining portion of the sarah-articular cocktail. The proximal femur was irrigated as well as the deep tissues. The [employer]ric[employer] standard collared stem, size 4, was then manually inserted into the proximal femur making sure to control rotation. It was then malleted into position with light blows, giving breaks to allow bone expansion and decrease risk of fracture. The selected Depuy Altrx Ceramic Head, size 32+5mm, was then placed onto the clean and dry trunnion and secured with impaction onto the tapered fit. The leg was brought back out of extension and adduction and reduced with traction and internal rotation. Stability was confirmed with no shuck at 90 degrees of external rotation and 30 degrees of extension. No impingement through range of motion arc. Final x-ray images were obtained with fluoroscopy to confirm adequate positioning and no intraoperative fracture. The deep tissues were thoroughly irrigated with Surgiphor, betadine solution. This was allowed to sit in the wound for 3 minutes before being thoroughly irrigated out with normal saline. The capsule was then reapproximated with the previously placed Ethibond sutures. The TFL fascia was finally closed with a No. 2 Stratafix, barbed suture. Deep tissues were then reapproximated with 0 Vicryl and a running 2-0 Vicryl. The skin was closed with a running 4-0 Monocryl in a subcuticular fashion. This was reinforced with skin glue. A Mepilex silver dressing was applied. At the end of the case, all counts were correct. Norma was transferred to the hospital bed without difficulty and suffering no apparent complication. Norma has a good prognosis. Physical therapy will start today and without restrictions, weight-bearing as tolerated. Aspirin 81mg BID will be used for DVT prophylaxis.
[2022-07-14] MEDS: Normal Saline 10 ML VIAL IJ (09:28)
[2022-07-14] MEDS: HYDROmorphone 2 MG/ML SYR IVP ×2 (09:28→09:45)
[2022-07-14] MEDS: oxyCODONE 5 MG TAB PO (11:56)
--- NOTE | 2022-07-14 12:20 | W.ANESPOSTOP ---
Postoperative Evaluation Date, Time and Location Date Performed: 07/14/22 Time Performed: 12:20 Patient Location: Day Surgery Unit Vital Signs Most Recent Imported Vital Signs: Most Recent Vital Signs Temp Pulse Resp BP Pulse Ox 36.5 C 88 16 119/63 94 07/14/22 11:56 07/14/22 11:56 07/14/22 11:56 07/14/22 11:56 07/14/22 11:56 Pain Score Most Recent Pain Score: Most Recent Pain Score Pain Level 5 07/14/22 11:56 Assessment Mental Status: Awake (Alert & Oriented to Patient Baseline) Airway and Respiratory Function: Patent airway with normal (patient baseline) respiratory exam Cardiovascular Function: Hemodynamically Stable Hydration Status: Adequately Hydrated Nausea & Vomiting: No Nausea or Vomiting Pain: Pain is Moderate or Severe Postoperative Pain Management: Pain being addressed with medication Peripheral Nerve Block: Patient did not receive a nerve block Postoperative Comments:: Pt. jus received PO analgesia medication. She was a 4/10 which was tolerable and is now 5/10. PT is scheduled for 1230. She is breathing and oxygenating well when I saw her. RN will notify if any additional concerns.
--- NOTE | 2022-07-14 14:11 | PT.INIE ---
Date of service: 07/14/22 Time of Service: 12:36 PT Notes Visit Reasons: R THR Physical Therapy Day Surgery Initial Evaluation Date: 07/14/2022 Referring Doctor: SOLITARIO Delarosa PT Orders: PT CONSULT: S/P Ortho surgery Precautions: WBAT on right LE with AD. Patient Profile/Admitting Diagnosis: Norma is a 72-year-old female with degenerative joint disease of the right hip and is status post right anterior total hip arthroplasty on postoperative day 0. PMHX: Medical History?(Updated 07/08/22 @ 11:14 by Blossom Boone) Depression Diabetes DJD (degenerative joint disease) a. Uses Tylenol 500 mg t.i.d.Dyslipidemia Hypertension A. Well controlled with a combination of Hydrochlorothiazide 25 mg once daily and Losartan 50 mg once daily. Insomnia Morbid obesity with BMI of 40.0-44.9, adult PCOS (polycystic ovarian syndrome) Surgical History?(Updated 07/08/22 @ 11:14 by Blossom Boone) History of x2 Hx of tonsillectomy Normal colonoscopy (~04/2020) S/P cholecystectomy Status post total knee replacement, left Left TKA Left TKA revision Status post total knee replacement, right Social History/Home Situation: Lives with friend in a private home with sick steps to enter and a rail on one side. Independent with all aspects of ADLs using SPC prior to surgery without an assistive device although has had increasing difficulty due to worsening pain in the right hip. Equipment Owned/DME: SPC Subjective: Reports of burning pain on the outer side of her right hip down the middle of her thigh, 5-6/10 at rest and with movement. Somewhat subsided to 4-5/10 after PT session. Objective: General Observation: Supine in bed. Mepilex Ag over surgical incision. TEDs to B legs. Nurse Steward assisting with ambulation with a wheelchair follow for safety. Mental Status: Alert and oriented x4 Pain: 6/10 pain on the right lateral hip and thigh at rest and movement ROM: Right Lower Extremity: Hip flexion lacks 50% of available range due to discomfort. Hip abduction lacks 50% of available range due to discomfort. Knee flexion WFL 45 degrees to 90 degrees. Knee extension -45 degrees. Ankle dorsiflexion WFL. Ankle plantarflexion WFL. Left Lower Extremity: Hip flexion WFL. Hip abduction WFL. Knee flexion WFL. Ankle dorsiflexion WFL. Ankle plantarflexion WFL. Strength: Right Lower Extremity: Hip flexors 3-/5. Hip abductors 3-/5. Knee flexors 4/5. Knee extensors 3-/5. Ankle dorsiflexors 4-/5. Ankle plantarflexors 4-/5. Left Lower Extremity:Hip flexors 5/5. Hip abductors 5/5. Knee flexors 5/5. Knee extensors 5/5. Ankle dorsiflexors 5/5. Ankle plantarflexors 5/5. Sensation: Intact as to pain and light touch in bilateral lower extremities Bed Mobility/Transfers: Supine to sit minimal assist Sit to stand contact-guard assist Stand to sit standby assist Bed to chair contact-guard assist Gait: Tolerated level surface ambulation of 100 feet using front wheeled walker with step to gait pattern and contact-guard assist requiring minimal verbal cueing for safe and correct gait pattern to minimize pain. Reported burning pain at 6/10 pain on the lateral hip and mid thigh area that somewhat subsided later in the walk. No shortness of breath. No loss of balance. Stairs. Negotiated up and down 12 x 6 inch steps while holding onto 1 rail with 1 hand and with SPC on the other hand requiring contact-guard assist and moderate verbal cueing for safe gait pattern. Balance: Static Sitting: Normal Dynamic Sitting: Normal Static Standing: Fair Dynamic Standing: Fair Special Tests: Mobility Limitations Standardized Measure [facility] AM-PAC 6 clicks Basic Mobility Inpatient Short Form: Raw Score: 18 CMS Score: 47 deficit Informed Consent/Education: Patient instructed in purpose of PT consult. Packet containing YA exercise protocol has been given to patient. Education and training on initial set of exercises that can be done at home have been completed with patient. NEURO RE-ED: Trained patient with correct and safe performance of exercises listed below to maximize motor control, joint flexibility, soft tissue extensibility of the R hip musculature to facilitate return to independent functional mobility performance. Supine gluteal sets x 5 with 5 sh Supine heels slides x 5 Supine ankle DF/PF x 10 Seated B LAQs x 5 Seated marches x 5 Assessment: Was initially anxious and anticipatory of pain at start of session but regain confidence with mobility performance at end of session. Will have support of family members as she recovers at home. Patient requires the use of a front wheeled walker to maximize independence and reduce fall risk. Patient presents with clinical signs and symptoms consistent with current/admitting diagnoses that have resulted to mobility limitations, gait instability, generalized weakness, and impairment of motor control as demonstrated by the following impairment level findings: 1. Decreased strength to right hip major muscle groups 2. Impaired standing balance 3. Limitation of joint range of motion in right hip Impairments are contributing to the following functional limitations: 1. Inability to safely ambulate without assistive device 2. Increase completion time for mobility ADL performance 3. Increased fall risk Patient is assessed as a 57284 moderate complexity based on the following: History: 72-year-old female with impairment level findings, functional limitations, and past medical history as indicated above Examination: Demonstrable impairment in strength, balance, and mobility level with underlying impairments and functional limitations as documented above Presentation: Evolving Decision Makin moderate complexity Goals: N/A. PT evaluation and 1-2 treatment sessions only for functional mobility training using recommended AD and for HEP instruction. Plan of Care/Treatment Plan: N/A. PT evaluation and 1-2 treatment session only for functional mobility training using recommended AD and for HEP instruction. DISCHARGE RECOMMENDATIONS: Home when medically cleared by orthopedic surgeon. Recommend outpatient PT services in order to optimize functional mobility outcomes and facilitate return to community ambulation with least restrictive device TREATMENT CODE/TIME: 12967 x 30 minutes, 07106 x 26 minutes beginning at 12:36 PM Thank you for the opportunity to participate in the care of this patient. Radha Christy PT, DPT, CLT [facility] [place], [place]
== END 2022-07-14 14:07 | disposition home or self-care (01) ==
PROVIDERS: PCP Internal Medicine; Visit Provider Student in an Organized Health Care Education/Training Program
PROC: (CPT 27130; principal; 2022-07-14 07:30)
DX: M16.11 Unilateral primary osteoarthritis, right hip (principal); F32.A Depression, unspecified; E11.9 Type 2 diabetes mellitus without complications; I10 Essential (primary) hypertension
CPT/HCPCS: 20985; 27130; C1776; 97112; 97162; 73501; J0690; J1100; J1170; J2250; J2405

== ENCOUNTER 2022-07-29 11:15 | Outpatient (CLI) | payer MEDICARE, OTHER, SELFPAY ==
--- NOTE | 2022-07-29 10:15 | DI.RAD_ITS ---
Exam(s) XR HIP RT COMPLETE AP PELVIS EXAM: XR HIP RT COMPLETE AP PELVIS CLINICAL HISTORY: 1st post op S/P R YA. TECHNIQUE: 2D digital imaging was performed. Images were obtained. AP, lateral and oblique views w ere obtained. COMPARISON: CR XR HIP RT COMPLETE AP PELVIS from 02/23/2022 XA XR HIP RT IN OR from 07/14/2022 FINDINGS: BONES: There are stable post operative changes present. No fracture or dislocation. JOINTS: The orthopedic hardware is in good position. No evidence of hardware loosening. SOFT TISSUE: Normal. IMPRESSION: Stable postoperative changes. DATA REPOSITORY: RADIATION DOSE DELIVERED:
== END 2022-07-29 11:16 | disposition home or self-care (01) ==
LOC: DIORS 11:15
PROVIDERS: PCP Internal Medicine; Referring Provider Internal Medicine
DX: Z96.641 Presence of right artificial hip joint (principal); Z47.1 Aftercare following joint replacement surgery
CPT/HCPCS: 73502

== ENCOUNTER → 2022-08-09 10:32 | Outpatient (BNVA) | payer MEDICARE, OTHER, SELFPAY | PROVIDERS: PCP Internal Medicine; Referring Provider Internal Medicine; Visit Provider Student in an Organized Health Care Education/Training Program | DX: Z47.1 Aftercare following joint replacement surgery (principal); Z96.641 Presence of right artificial hip joint ==

== ENCOUNTER → 2022-08-23 13:59 | Outpatient (BNVA) | payer MEDICARE, OTHER, SELFPAY | PROVIDERS: PCP Internal Medicine; Referring Provider Internal Medicine | DX: Z47.1 Aftercare following joint replacement surgery (principal); Z96.641 Presence of right artificial hip joint ==

== ENCOUNTER 2023-05-17 20:33 | Outpatient (REF) | payer MEDICARE, OTHER, SELFPAY ==
[2023-05-17 21:08] LABS: Hemoglobin A1C 7.4 % (<5.7)
== END 2023-05-17 20:34 | disposition home or self-care (01) ==
LOC: NCHCN 20:33
PROVIDERS: PCP Internal Medicine; Visit Provider Family Medicine
DX: E11.9 Type 2 diabetes mellitus without complications (principal)
CPT/HCPCS: 83036

== ENCOUNTER 2023-07-28 11:14 | Outpatient (CLI) | payer MEDICARE, OTHER, SELFPAY ==
--- NOTE | 2023-07-28 11:01 | DI.RAD_ITS ---
Exam(s) XR HIP RT AP LAT ONLY EXAM: XR HIP RT AP LAT ONLY CLINICAL HISTORY: ANNUAL F/U R YA. TECHNIQUE: 2D digital imaging was performed. Two images were obtained. AP and lateral views were ob tained. COMPARISON: CR XR HIP RT COMPLETE AP PELVIS from 07/29/2022 FINDINGS: BONES: There are stable post operative changes of a right total hip replacement present. No fracture or dislocation. JOINTS: The orthopedic hardware is in good position. No evidence of hardware loosening. SOFT TISSUE: Normal. IMPRESSION: Stable right total hip replacement. DATA REPOSITORY: RADIATION DOSE DELIVERED:
== END 2023-07-28 11:15 | disposition home or self-care (01) ==
LOC: DIORS 11:15
PROVIDERS: PCP Internal Medicine; Referring Provider Internal Medicine; Visit Provider Physician Assistant
DX: Z47.1 Aftercare following joint replacement surgery (principal); Z96.641 Presence of right artificial hip joint
CPT/HCPCS: 99213; 73502

== ENCOUNTER 2023-08-15 14:53 | Outpatient (REF) | payer MEDICARE, OTHER, SELFPAY ==
[2023-08-15 15:13] LABS: Abs Immature Grans 0.02 10^3/uL (0.0-0.06); Absolute Basophil Count 0.08 10^3/uL (0.0-0.2); Absolute Eosinophil Count 0.29 10^3/uL (0.0-0.7); Absolute Lymphocyte Count 1.66 10^3/uL (1.2-3.4); Absolute Monocyte Count 0.44 10^3/uL (0.1-0.8); Basophils % 1.2 %; Eosinophils % 4.4 %; HCT 41.7 % (36.0-46.0); Immature Grans % 0.3 %; Lymphocytes % 25.2 %; MCH 30.2 pg (27.0-33.0); MCHC 33.6 % (32.0-36.0); MCV 90 fL (80-95); MPV 9.8 fL (8.0-11.0); Monocytes % 6.7 %; Neutrophils % 62.2 %; Platelet Count 260 10^3/uL (130-400); RBC 4.63 10^6/uL (3.93-5.22); RDW 12.4 % (11.7-14.6); RDW-SD 41.1 fL; WBC 6.59 10^3/uL (4.4-10.8)
[2023-08-15 15:43] LABS: ALT 27 U/L (14-59); AST 19 U/L (15-37); Albumin 3.8 g/dL (3.4-5.0); Alkaline Phosphatase 84 U/L (46-116); Anion Gap 11.5 mmol/L (3-11); BUN 21 mg/dL (7-18); Bilirubin, Total 0.6 mg/dL (0.2-1.0); CO2 28.5 mmol/L (21.0-32.0); CREATININE 1.3 mg/dL (0.55-1.02); Calcium 9.7 mg/dL (8.5-10.1); Chloride 103 mmol/L (98-107); Estimated GFR 43.69 (mL/min/1.73m2); Glucose 129 mg/dL (74-106); Potassium 4.4 mmol/L (3.5-5.1); Sodium 143 mmol/L (136-145); Total Protein 7.4 g/dL (6.4-8.2)
== END 2023-08-15 14:54 | disposition home or self-care (01) ==
LOC: NCHCN 14:53
PROVIDERS: PCP Family Medicine; Visit Provider Family Medicine
DX: I10 Essential (primary) hypertension (principal); E11.9 Type 2 diabetes mellitus without complications
CPT/HCPCS: 80053; 82043; 82570; 85025

== ENCOUNTER 2024-08-16 15:22 | Outpatient (REF) | payer MEDICARE, OTHER, SELFPAY ==
[2024-08-16 16:55] LABS: COMMENT (LAB VIEW ONLY) 202.37 mg/dL; Microalb ug/mg Crea 33.1 ug/mg Cr
[2024-08-16 17:41] LABS: ALT 19 U/L (14-59); AST 18 U/L (15-37); Albumin 3.8 g/dL (3.4-5.0); Alkaline Phosphatase 87 U/L (46-116); Anion Gap 8.6 mmol/L (3-11); BUN 30 mg/dL (7-18); Bilirubin, Total 0.6 mg/dL (0.2-1.0); CO2 29.4 mmol/L (21.0-32.0); CREATININE 1.3 mg/dL (0.55-1.02); Calculated LDL 49 mg/dL (<100); Chloride 102 mmol/L (98-107); Cholesterol 140 mg/dL (<200); Estimated GFR 43.42 (mL/min/1.73m2); Glucose 138 mg/dL (74-106); HDL Cholesterol 39 mg/dL (>or=50); Potassium 4.2 mmol/L (3.5-5.1); Sodium 140 mmol/L (136-145); Total Protein 7.4 g/dL (6.4-8.2); Triglyceride 262 mg/dL (<150)
== END 2024-08-16 15:23 | disposition home or self-care (01) ==
LOC: NCHCN 15:22
PROVIDERS: PCP Family Medicine; Visit Provider Family Medicine
DX: E11.9 Type 2 diabetes mellitus without complications (principal); E78.5 Hyperlipidemia, unspecified
CPT/HCPCS: 80053; 80061; 82043; 82570